=== PATIENT | female | born 1955 | race African-American/Black ===

== ENCOUNTER 2022-06-26 14:32 | Emergency (ER) | payer MEDICARE, MEDICAID ==
[~2022-06-26] VITALS: Ht 167.6 cm; Wt 61.0 kg
[2022-06-26] MEDS ORDERED: IBUPROFEN 600MG TABLET PO ONE (18:00)
[2022-06-26 18:12] VITALS: BP 122/88
[2022-06-26] MEDS ORDERED: NAP5EC PO (18:31)
== END 2022-06-26 18:45 | disposition home or self-care (01) ==
LOC: ER 14:32
DX: S20.219A Contusion of unspecified front wall of thorax, initial encounter (principal); X58.XXXA Exposure to other specified factors, initial encounter; Y93.89 Activity, other specified; Y92.89 Other specified places as the place of occurrence of the external cause; Y99.8 Other external cause status
CPT/HCPCS: 71045; 93005; 99283

== ENCOUNTER 2022-11-26 10:36 | Emergency (ER) | payer OTHER, MEDICAID ==
[~2022-11-26] VITALS: Ht 170.2 cm; Wt 68.0 kg
[~2022-11-26 10:36] MED LIST: NAP5EC PO
[2022-11-26 10:41] VITALS: BP 130/90; PULSE 112; RESP 18; TEMP 98.8; O2SAT 98
[2022-11-26] MEDS ORDERED: NEO/5DRO3 EACHEYE (13:59)
== END 2022-11-26 14:10 | disposition home or self-care (01) ==
LOC: ER 10:36
DX: H10.9 Unspecified conjunctivitis (principal)
CPT/HCPCS: 99281